=== PATIENT | male | born 1980 | race Hispanic/Latino ===

== ENCOUNTER 2018-08-19 23:14 | Emergency (ER) | payer SELFPAY ==
[2018-08-20] MEDS ORDERED: ORPHENADRINE CITRATE 30 MG/ML ML ONE (00:22)
[2018-08-20] MEDS ORDERED: KETOROLAC TROMETHAMINE 60 MG/2 ML VIAL ONE (00:22)
[2018-08-20] MEDS ORDERED: LIDOCAINE 5% TOPICAL PATCH TP ONE (00:22)
== END 2018-08-20 01:14 | disposition home or self-care (01) ==
LOC: EDH 23:14
DX: M54.5 Low back pain (principal); M62.838 Other muscle spasm; Z72.0 Tobacco use
CPT/HCPCS: 72100; 96372 ×2; 99284; J1885; J2360